=== PATIENT | female | born 1990 | race African-American/Black ===

== ENCOUNTER 2019-02-17 05:52 | Emergency (ER) | payer OTHER, BC ==
[~2019-02-17] VITALS: Ht 185.4 cm; Wt 83.9 kg
[2019-02-17] MEDS ORDERED: TETRACAINE 0.5% OPHTH SOLUTION 4ML BOTTLE. OD ONE (06:30)
[2019-02-17] MEDS ORDERED: IV NORMAL SALINE 1000ML BAG 1,000 ML IV ONE (06:30)
[2019-02-17 06:34] VITALS: BP 120/76
[2019-02-17] MEDS ORDERED: FLUORESCEIN OPHTH TEST STRIP. ONE (07:00)
--- NOTE | 2019-02-17 07:18 | PHYS DOC ---
Text Text Initial PH was 7.5. Ruel lens placed and eye irrigated with 1 L NS. PH 7.0- 7.5 on recheck, No dye uptake on fluorescein screening. Recommend follow up avoid contact lens and work comp follow up. 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 Patient wears con tact lenses. She immediately removed contacts and irrigated ice for 15 minutes. Patient was instructed to come to the ED for additional evaluation. Patient denies change in vision or eye pain. No other acute symptoms or complaints. Timing/Duration: abrupt Location: eye (R) Prearrival Treatment: flushing eyes Associated Symptoms: denies symptoms Allergies: Coded Allergies: oxycodone (Verified Adverse Reaction, Mild, itching , 02/17/19) Past Medical History Medical History: no pertinent history Surgical History: no surgical history Family History Significant Family History: no pertinent family hx Constitutional: no symptoms reported Eyes: see HPI Ears: no symptoms reported Nose: no symptoms reported Mouth: no symptoms reported Throat: no symptoms reported Physical Exam Eyes: right eye conjunctival inflammation Ears: bilateral ear auricle normal, bilateral ear canal normal EDWIN VAZ DO Feb 17, 2019 07:18
== END 2019-02-17 07:30 | disposition home or self-care (01) ==
LOC: ER 05:52
DX: T15.91XA Foreign body on external eye, part unspecified, right eye, initial encounter (principal); Z88.5 Allergy status to narcotic agent; X58.XXXA Exposure to other specified factors, initial encounter; Y93.89 Activity, other specified; Y92.69 Other specified industrial and construction area as the place of occurrence of the external cause; Y99.0 Civilian activity done for income or pay
CPT/HCPCS: 99283; J7030